=== PATIENT | male | born 1940 | race Caucasian/White ===

== ENCOUNTER 2016-10-21 09:46 | Emergency (ER) | payer MEDICARE, OTHER ==
[2016-10-21 10:54] LABS: BASOPHIL 0.2 % (0-2); EOSINOPHIL 1.7 % (0-7); HCT 39.5 % (42.0-52.0); HGB 13.3 g/dl (13.2-18.0); LYMPHOCYTE 7.6 % (15-48); MCHC 33.7 g/dL (32.0-36.0); MCV 92.1 fL (78.0-100.0); MONOCYTE 8.3 % (0-12); MPV 9.1 fL (6.0-9.5); NEUTROPHIL 82.2 % (41-80); PLT 329 K/uL (150-400); RBC 4.29 M/uL (4.70-6.00); RDW 13.4 % (11.5-14.0); WBC 12.9 K/uL (4.0-10.5)
[2016-10-21 11:09] LABS: ALBUMIN 3.6 g/dL (3.4-4.8); BILIRUBIN - TOTAL 0.6 mg/dL (0.1-1.0); GLOBULIN (CALCULATION) 3.3 g/dL (2.2-4.2); POTASSIUM 4.3 mmol/L (3.5-5.1); TOTAL PROTEIN 6.9 g/dL (6.4-8.3)
[2016-10-21 11:10] LABS: CKMB 1.59 ng/mL (0.97-4.94)
[2016-10-21 11:15] LABS: TROPONIN T 0.364 ng/mL
[2016-10-21 11:27] LABS: INR 1.07 (0.9-1.2); PROTHROMBIN TIME 13.5 SECONDS (11.7-14.0); PTT 26.2 SECONDS (23.2-31.4)
== END 2016-10-21 18:40 | disposition other institution (70) ==
LOC: FER 09:46
PROVIDERS: Emergency Medicine
DX: R53.1 Weakness (principal); R47.01 Aphasia; R00.0 Tachycardia, unspecified; R20.0 Anesthesia of skin; R29.701 NIHSS score 1; I25.810 Atherosclerosis of coronary artery bypass graft(s) without angina pectoris; I11.9 Hypertensive heart disease without heart failure; I48.91 Unspecified atrial fibrillation; Z79.82 Long term (current) use of aspirin; Z79.02 Long term (current) use of antithrombotics/antiplatelets; Z79.899 Other long term (current) drug therapy; Z95.1 Presence of aortocoronary bypass graft
CPT/HCPCS: 36415; 70450; 71010; 80053; 80061; 82550; 82553; 83874; 84484; 85025; 85610; 85730; 93005